=== PATIENT | female | born 1980 | race Caucasian/White ===

== ENCOUNTER 2017-04-23 00:05 | Inpatient (IN) | payer SELFPAY ==
[2017-04-23] VITALS (63 sets, daily range): BP systolic 109–135; BP diastolic 52–95; PULSE 65–130; RESP 16–20; TEMP 98.1–98.7; O2SAT 98
[~2017-04-23] VITALS: Ht 162.6 cm; Wt 66.0 kg
[~2017-04-23 00:05] MED LIST: OXYC1SOL5 PO; PRENTAB72 PO
--- NOTE | 2017-04-23 01:02 | PD ---
HPI Chief Complaint Contractions every 8 minutes Date Seen: Apr 23, 2017 Time Seen: 00:52 Travel History International Travel<30 Days: No Contact w/Intl Traveler<30Days: No Known Affected Area: No History of Present Illness HPI Patient is 36-year-old white female L9 previous 1 with multiple VBACs and is a patient of Dr. Todd who presents complaining of contractions every 8 minutes, no bleeding or leakage of fluid, heart tones are reactive and she is mack every 8 or 9 minutes Weeks Gestation: 38 Para: 6 : 7 History Obstetric History Obstetric History Patient had several vaginal deliveries then a for triplets and then after that multiple deliveries including a set of twins and these last few deliveries were all for surrogates Past Surgical History Narrative Surgical 1 Social History Alcohol Use: No Tobacco Use: No Substance Abuse: No Allergies-Medications (Allergen,Severity, Reaction): Coded Allergies: No Known Allergies (Verified , 09/12/12) Home Meds Active Scripts Oxycodone W/ Acetaminophen (Oxycodone/Acetaminophen 5-325 mg/5Ml) 1 Tab Tab, 1 TAB PO Q4H Y for PAIN SCALE 1 TO 4, #20 TAB Prov:Misha Mcduffie MD 08/07/14 Reported Medications Vit W/ Ferrous Fumara () Tab, 1 PO DAILY 09/12/12 Review of Systems General / Constitutional: No: Fever, Weight Gain, Chills, Other Eyes: No: Diploplia, Blurred Vision, Visual changes, Pain, Photophobia HENT: No: Headaches, Vertigo, Lightheadedness Cardiovascular: No: Irregular Rhythm, Chest Pain or Discomfort, Palpitations, Tachycardia, Syncope, Varicosities, Edema, Cyanosis Respiratory: No: Cough, Short of Breath, Other Gastrointestinal: Abdominal Pain, No: Nausea, Vomiting, Diarrhea Genitourinary: No: Decreased Urinary Output, Oliguria Musculoskeletal: No: Limited ROM, Weakness, Cramping, Edema, Pain Skin: No Rash, No Itching, No Dryness, No Lumps, No Change in Pigmentation, No Change in Nails, No Alopecia, No Lesions Neurologic: No: Weakness, Dizziness, Syncope, Focal Abnormalities, Coordination Problem, Headache, Slurred Speech, Seizures Psychiatric: No: Depression, Suicidal Ideations, Homicidal Ideation Endocrine: No: Heat Intolerance, Cold Intolerance, Polydipsia, Polyuria, Other Physical Exam Narrative GENERAL: Well-nourished, well-developed patient. SKIN: Warm and dry. HEAD: Normocephalic and atraumatic. EYES: No scleral icterus. No injection or drainage. ENT: No nasal drainage noted. Mucous membranes pink. Airway patent. NECK: Supple, trachea midline. No JVD. CARDIOVASCULAR: Regular rate and rhythm without murmurs, gallops, or rubs. RESPIRATORY: Breath sounds equal bilaterally. No accessory muscle use. BREASTS: Bilateral exam showed no masses , no retractions, no nipple discharge. ABDOMEN/GI: Abdomen soft, non-tender, bowel sounds present, no rebound, no guarding Gravid to [-37] weeks size Fundal Height: [36-] GENITOURINARY: External Genitalia: intact and normal in appearance BUS glands: [-] Cervix: [post-] Dilatation: [4-] Effacement: [70-] Station: [-3] Presentation: [vtx-] Membranes: [intact ] Uterine Contractions: [-q 8 min] FHT's: Category: [1-] Baseline: [-133] Reactive: [-R] Variability: [mod-] Decels: [-none] EXTREMITIES: No cyanosis or edema. BACK: Nontender without obvious deformity. No CVA tenderness. NEUROLOGICAL: Awake and alert. Motor and sensory grossly within normal limits. Five out of 5 muscle strength in all muscle groups. Normal speech. Data Data Group B Strep: Negative MDM Interpretation(s) Patient is 36-year-old white female at 38-39 weeks with latent phase labor, contractions every 8 minutes cervix 4/ 70/-3 vertex, heart tones are reactive and contractions seen on the monitor every 8-9 minutes Diagnosis Diagnosis: Primary Impression: Labor, prolonged latent phase Additional Impression: Grand multipara in labor in third trimester Joe Boss II, MD Apr 23, 2017 01:02
[2017-04-23 03:07] LABS: AUTOMATED NEUTROPHIL # 9.4 TH/MM3 (1.8-7.7); BASOPHIL % 0.4 % (0.0-2.0); EOSINOPHIL # 0.3 TH/MM3 (0-0.4); EOSINOPHIL % 2.6 % (0.0-4.0); HEMATOCRIT 35.3 % (35.0-46.0); HEMOGLOBIN 12.2 GM/DL (11.6-15.3); LYMPHOCYTE # 2.3 TH/MM3 (1.0-4.8); MEAN CELL VOLUME 83.4 FL (80.0-100.0); MEAN CORPUSCULAR HEMOGLOBIN 28.9 PG (27.0-34.0); MEAN CORPUSCULAR HGB CONC 34.7 % (32.0-36.0); MEAN PLATELET VOLUME 8.9 FL (7.0-11.0); MONO % 6.5 % (0.0-8.0); MONOCYTE # 0.8 TH/MM3 (0-0.9); NEUT % 72.5 % (16.0-70.0); PLATELET COUNT 154 TH/MM3 (150-450); RED BLOOD COUNT 4.23 MIL/MM3 (4.00-5.30); RED CELL DISTRIBUTION WIDTH 13.6 % (11.6-17.2)
[2017-04-23] MEDS ORDERED: fentaNYL 2MCG-BUPIV 0.125% INJ 100 ML ONE (03:14)
[2017-04-23] MEDS ORDERED: LACTATED RINGER'S 1000 ML IV SCH (03:15)
[2017-04-23] MEDS ORDERED: MINERAL OIL 10 ML VIAL TOPICAL PRN (03:15)
[2017-04-23] MEDS ORDERED: NS 1000 ML IV PRN (03:15)
[2017-04-23] MEDS ORDERED: LIDOCAINE HCL 1% 50 ML VIAL I-DERMAL PRN (03:15)
[2017-04-23] MEDS ORDERED: LIDOCAINE HCL 1% 50 ML VIAL INFIL PRN (03:15)
[2017-04-23] MEDS ORDERED: OXYTOCIN 30 UNITS 500ML PREMIX IV ONE (03:15)
[2017-04-23] MEDS ORDERED: CITRIC ACID-SODIUM CITRATE LIQ 30 ML UDC PO SCH (03:15)
[2017-04-23] MEDS ORDERED: LACTATED RINGER'S 1000 ML BOLUS IV PRN (03:15)
[2017-04-23] MEDS ORDERED: NS 500 ML BOLUS IV PRN (03:15)
[2017-04-23] MEDS ORDERED: PREN29TA PO (04:28)
[2017-04-23 05:15] LABS: BILIRUBIN, URINE NEG (NEG); BLOOD, URINE NEG (NEG); GLUCOSE,URINE NEG (NEG); KETONE, URINE NEG (NEG); MUCUS URINE FEW /lpf (OCC); NITRITE,URINE NEG (NEG); PH, URINE 6.5 (5.0-8.5); URINE COLOR LIGHT-YELLOW (YELLW/STRAW); URINE LEUKOCYTE ESTERASE NEG (NEG)
[2017-04-23] MEDS ORDERED: ACETAMINOPHEN 325 MG TAB PO PRN (05:15)
[2017-04-23] MEDS ORDERED: SODIUM CHLORIDE 0.9% FLUSH 10 ML FLUSH IV FLUSH PRN (05:15)
[2017-04-23] MEDS ORDERED: BENZOCAINE 20% TOPICAL SPRAY 60 ML CAN TOPICAL PRN (05:15)
[2017-04-23] MEDS ORDERED: ZOLPIDEM TARTRATE 5 MG TAB PO PRN (05:15)
[2017-04-23] MEDS ORDERED: ONDANSETRON ODT 4 MG TAB PO PRN (05:15)
[2017-04-23] MEDS ORDERED: DOCUSATE SODIUM 50 MG/SENNA 8.6 MG TAB PO PRN (05:15)
[2017-04-23] MEDS ORDERED: IBUPROFEN 800 MG TAB PO PRN (05:15)
[2017-04-23] MEDS ORDERED: ALUMINUM/MAGNESIUM/SIMETH 30 ML CUP PO PRN (05:15)
[2017-04-23] MEDS ORDERED: WITCH HAZEL 50%/GLYCERIN 12.5% 40 PAD JAR TOPICAL PRN (05:15)
[2017-04-23] MEDS ORDERED: oxyCODONE/ACETAMINOPHEN 5 MG/325 MG TAB PO PRN ×2 (05:15)
[2017-04-23] MEDS ORDERED: OXYTOCIN 30 UNITS-500ML PREMIX 500 ML IV SCH (05:15)
--- NOTE | 2017-04-23 05:19 | PD.OB.DELI ---
Weeks gestation: 38 Gest age assessed date: Apr 23, 2017 Gest age assessed time: 04:36 Pt started active labor?: Yes Active labor start date: Apr 23, 2017 Active labor start time: 04:36 Medical induction of labor?: No Artificial rupture of membrane: Yes Artificial ROM date: Apr 23, 2017 Artifical ROM time: 04:36 Anesthesia: Epidural Episiotomy: None Vaginal Delivery: Normal, Spontaneous Presentation: Occiput anterior, Vertex Nuchal Cord: None Delayed cord clamping (45 sec): Yes Infant: Male, Single Delivery date: Apr 23, 2017 Delivery time: 04:57 One Minute : 9 Five Minute : 9 Weight: 7# 11oz Placenta: Spontaneous delivery, Intact, 3 vessel cord Laceration: No lacerations Estimated blood loss: 150 Misha Mcduffie MD Apr 23, 2017 05:19
[2017-04-23] MEDS ORDERED: DO NOT ADMINISTER ANTICOAGULANTS PRN (05:45)
[2017-04-23] MEDS ORDERED: NO SYSTEM NARCOTICS PRN (05:45)
[2017-04-23] MEDS ORDERED: ePHEDrine/NS 25 MG/5 ML SYRINGE IV PUSH PRN (05:45)
[2017-04-23] MEDS ORDERED: fentaNYL 2MCG-BUPIV 0.125% 100 ML EPIDURAL SCH (05:45)
--- NOTE | 2017-04-23 05:57 | HHI.DCPOC ---
Discharge Care Plan Diagnosis: (1) Spontaneous vaginal delivery Report Symptoms to Your Doctor -Temperature above 100.5 degrees -Redness, of incision or excessive or foul smelling drainage -Unusual pain or calf pain -Increased vaginal bleeding -Painful or difficulty urinating -Feelings of extreme sadness or anxiety after 2 weeks Goals to Promote Your Health * To prevent worsening of your condition and complications * To maintain your health at the optimal level Directions to Meet Your Goals Take your medications as prescribed Follow your dietary instruction Follow activity as directed Ensure plenty of rest for recovery Drink fluids for hydration Keep your appointments as scheduled Take your immunizations and boosters as scheduled If your symptoms worsen call your PCP, if no PCP go to Urgent Care Center or Emergency Room Smoking is Dangerous to Your Health. Avoid second hand smoke Call the 24-hour crisis hotline for domestic abuse at Misha Mcduffie MD Apr 23, 2017 05:57
[2017-04-23] MEDS ORDERED: SODIUM CHLORIDE 0.9% FLUSH 10 ML FLUSH IV FLUSH SCH (09:00)
[2017-04-23] MEDS ORDERED: MEASLES, MUMPS, RUBELLA VACCINE 0.5 ML VIAL SQ ONE (16:00)
[2017-04-23] MEDS ORDERED: DIPHTH/TETANUS/ACEL PERTUSSIS (BOOSTER) 0.5 ML VIAL/PFS IM ONE (16:00)
[2017-04-24 08:00] VITALS: BP_SYST 120; BP_SYST 148; BP_DIAS 72; BP_DIAS 80; PULSE 65; PULSE 87; RESP 16; TEMP 97.9; TEMP 98; O2SAT 95; O2SAT 97
[2017-04-24] MEDS ORDERED: INFLUENZA VIRUS VACCINE (QUADRIVALENT) 0.5 ML SYR IM ONE (10:00)
--- NOTE | 2017-04-24 11:04 | HHI.DS ---
Admission Date Apr 23, 2017 at 03:23 Admitting Diagnosis Diagnosis: Delivery Date: Apr 23, 2017 Vaginal Delivery: : Male, Single Brief History Patient is 36-year-old white female L9 previous 1 with multiple VBACs and is a patient of Dr. Todd who presents complaining of contractions every 8 minutes, no bleeding or leakage of fluid, heart tones are reactive and she is mack every 8 or 9 minutes Pt Condition on Discharge: Good Discharge Disposition: Discharge Home Discharge Instructions Diet Instructions: As Tolerated, No Restrictions Activities You Can Perform: Pelvic Rest Activities to Avoid: Sexual Activity Denise Sparks MD Apr 24, 2017 11:04
[2017-04-24] MEDS ORDERED: DIPHTH/TETANUS/ACEL PERTUSSIS (BOOSTER) 0.5 ML VIAL/PFS IM ONE (15:00)
== END 2017-04-24 16:16 | disposition home or self-care (01) | DRG 775 ==
LOC: HOBED 00:05 → H2EA 02:17 → OBSVTOIN 03:23 → H1EA 07:55
PROVIDERS: ADMIT Obstetrics & Gynecology; ATTEND Obstetrics & Gynecology
PROC: 10E0XZZ Delivery of Products of Conception, External Approach (ICD-10-PCS; principal; 2017-04-23)
PROC: 10907ZC Drainage of Amniotic Fluid, Therapeutic from Products of Conception, Via Natural or Artificial Opening (ICD-10-PCS; 2017-04-23)
DX: O34.219 Maternal care for unspecified type scar from previous cesarean delivery (principal); O63.0 Prolonged first stage (of labor); Z37.0 Single live birth; Z3A.38 38 weeks gestation of pregnancy; Z23 Encounter for immunization
CPT/HCPCS: 59025; 80307; 81001; 85025; 86900; 86901; 90686; 90715; Q2038